=== PATIENT | female | born 1950 | race Caucasian/White ===

== ENCOUNTER → 2022-11-06 | Outpatient (CLI) | payer OTHER | LOC: LAB 09:11 → LAB SHORT 09:11 | DX: R10.13 Epigastric pain (principal) | CPT/HCPCS: 87338 ==

== ENCOUNTER 2023-11-21 06:14 | Day surgery (SDC) | payer OTHER ==
[~2023-11-21] VITALS: Ht 160 cm; Wt 69.5 kg
[~2023-11-21 06:14] MED LIST: Balanced Salt Epinephrine Irrigation Solution 500 mL IR SCH; Lidocaine HCl/Pf 1% 5 ML VIAL XX SCH; Moxifloxacin HCL 0.5 MG/0.1 ML 0.4MLSYR LEFTEYE SCH; NS 500 ML IV ONE; PHENYLEPHRINE\\TROPICAMIDE\\TETRACAINE OPHTHALMIC DILATING SOLN LEFTEYE PRN; Povidone-Iodine 450 DROP/30 ML Solution LEFTEYE SCH; Triamcinolone Inj Susp 40 MG / ML 1ML Vial INJ SCH
[2023-11-21] MEDS ORDERED: AMLODIPINE BESY10 MG PO (06:28)
[2023-11-21] MEDS ORDERED: FOSAMAX70 MG PO (06:28)
[2023-11-21] MEDS ORDERED: OMEP20ER PO (06:28)
[2023-11-21] MEDS ORDERED: LOSA50 PO (06:29)
[2023-11-21] MEDS ORDERED: VITAMIN D (06:30)
[2023-11-21] MEDS ORDERED: ALLERCLEAR10 MG PO (06:30)
[2023-11-21] MEDS ORDERED: CHONDROITIN (06:31)
[2023-11-21] MEDS ORDERED: OMEGA 3 (06:31)
[2023-11-21] MEDS ORDERED: GLUCOSAMINE (06:31)
[2023-11-21] MEDS ORDERED: TURMERIC CURCUMIN (06:32)
[2023-11-21] MEDS ORDERED: CALCIUM MAGNESIUM (06:32)
[2023-11-21] MEDS ORDERED: Triamcinolone Inj Susp 40 MG / ML 1ML Vial ONE (06:35)
[2023-11-21] MEDS ORDERED: Lidocaine HCl/Pf 1% 5 ML VIAL ONE (06:36)
[2023-11-21] MEDS ORDERED: NS 500 ML IV ONE (06:36)
--- NOTE | 2023-11-21 06:37 | NUR ---
11/21/23 0637 Renetta Jensen AT 0629 PLEDGET AT 0624
[2023-11-21] MEDS ORDERED: FentaNYL Citrate 50 MCG/ML 2 ML Injection ONE (06:50)
[2023-11-21] MEDS ORDERED: Midazolam HCl 1MG / ML 2ML Vial ONE (06:50)
[2023-11-21 08:25] VITALS: BP 131/68
== END 2023-11-21 08:17 | disposition home or self-care (01) ==
LOC: ORSCSDS 06:14
PROVIDERS: Ophthalmology
PROC: 08RK3JZ Replacement of Left Lens with Synthetic Substitute, Percutaneous Approach (ICD-10-PCS; principal; 2023-11-21 07:30)
DX: H25.813 Combined forms of age-related cataract, bilateral (principal); K21.9 Gastro-esophageal reflux disease without esophagitis; I10 Essential (primary) hypertension; Z79.899 Other long term (current) drug therapy
CPT/HCPCS: J2001; J2250; J3010; J3301; J7040; V2632

== ENCOUNTER 2023-11-29 10:47 | Day surgery (SDC) | payer OTHER ==
[~2023-11-29] VITALS: Ht 160 cm; Wt 68.8 kg
[~2023-11-29 10:47] MED LIST changes: +ALLERCLEAR10 MG PO; +AMLODIPINE BESY10 MG PO; +CALCIUM MAGNESIUM; +CHONDROITIN; +FOSAMAX70 MG PO; +GLUCOSAMINE; +LOSA50 PO; -Moxifloxacin HCL 0.5 MG/0.1 ML 0.4MLSYR LEFTEYE SCH; +Moxifloxacin HCL 0.5 MG/0.1 ML 0.4MLSYR RIGHTEYE SCH; +OMEGA 3; +OMEP20ER PO; -PHENYLEPHRINE\\TROPICAMIDE\\TETRACAINE OPHTHALMIC DILATING SOLN LEFTEYE PRN; +PHENYLEPHRINE\\TROPICAMIDE\\TETRACAINE OPHTHALMIC DILATING SOLN RIGHTEYE PRN; -Povidone-Iodine 450 DROP/30 ML Solution LEFTEYE SCH; +Povidone-Iodine 450 DROP/30 ML Solution RIGHTEYE SCH; +TURMERIC CURCUMIN; +Triamcinolone Inj Susp 40 MG / ML 1ML Vial ONE; +VITAMIN D
[2023-11-29] MEDS ORDERED: Lactated Ringer's 1,000 ML IV ONE (11:20)
[2023-11-29] MEDS ORDERED: Midazolam HCl 1MG / ML 2ML Vial ONE (11:58)
[2023-11-29] MEDS ORDERED: Tetracaine HCl 0.5% Opth Soln 15 ml RIGHTEYE ONE (12:00)
[2023-11-29 12:33] VITALS: BP 125/61
== END 2023-11-29 12:32 | disposition home or self-care (01) ==
LOC: ORSCSDS 10:47
PROVIDERS: Ophthalmology
PROC: 08RJ3JZ Replacement of Right Lens with Synthetic Substitute, Percutaneous Approach (ICD-10-PCS; principal; 2023-11-29 12:00)
DX: H25.811 Combined forms of age-related cataract, right eye (principal); Z96.1 Presence of intraocular lens; K21.9 Gastro-esophageal reflux disease without esophagitis; I10 Essential (primary) hypertension; Z79.899 Other long term (current) drug therapy
CPT/HCPCS: J2250; J3301; J7040; J7120; V2632